=== PATIENT | male | born 1955 | race Caucasian/White ===

== ENCOUNTER → 2019-08-22 | Outpatient (CLI) | payer OTHER ==
[~2019-08-22] MED LIST: AMOXICILLIN 8751 TAB PO; APRESOLINE 25MG25 MG PO; APRISO0.375 GM PO; ASPI325T6 PO; ATROVENT I0.2 MG/1 M IH; BASE, PCCA POLY1 FLA PO; BUSPAR DIVIDOSE15 MG PO; COREG 6.256.25 MG/TA PO; DAZIDOX10 MG PO; DUO-KAPS1 CAP PO; FENTANYL 12MCG TD; FERRO-TIME325 MG PO; FLONASEALLERGY NS; GERI-TUSSI100 MG/5 M PO; HYTRIN 1MG C1 MG/CAP PO; ISORDIL 20MG20 M1 PO; KEPPRA750 MG PO; KLONOPIN 0.5MG0.5 MG PO; LANTUS100 U/ML SQ; LIORESAL 1010 MG/TAB PO; MELATIN 3 MG-11 TAB PO; MOBIC15 MG PO; NEURONTIN300 MG/CAP PO; NORVASC 10MG10 MG PO; OSCAL 500 TAB500 MG PO; PEPCID 20MG TAB20 MG PO; PROBIOTIC-10 370 MG PO; SENNA-LAX8.6 MG PO; TYLENOL 325MG325 MG PO; VITAMIN C500 MG PO; VITAMIN D31000 I1 PO; ZOLOFT 100MG100 MG PO; ZYRTEC10MGSGL PO
== END ==
LOC: COL.RAD 08-06 09:30
DX: T84.091A Other mechanical complication of internal left hip prosthesis, initial encounter (principal); M25.552 Pain in left hip; Z98.890 Other specified postprocedural states; Z87.81 Personal history of (healed) traumatic fracture

== ENCOUNTER → 2019-10-03 | Outpatient (CLI) | payer OTHER | LOC: COL.RAD 09:06 | DX: M25.552 Pain in left hip (principal) ==